=== PATIENT | male | born 1955 | race Caucasian/White ===

== ENCOUNTER 2018-05-19 20:23 | Inpatient (IN) | payer MEDICAID ==
[~2018-05-19] VITALS: Ht 172.7 cm; Wt 81.6 kg
--- NOTE | 2018-05-19 20:23 | NUR ---
PT BIBA FOUND ALOC AT BUS STATION, PT IS AWAKE , PERRL, PT DOES NOT KNOW YEAR OR WHERE HE IS AT, PT IS FORGETFUL. PT ARRIVES INCONTINENT TO URINE, APPEARS TO HAVE VOMIT ON CLOTHING WELL, PT DENIES ALCOHOL AND DRUG ABUSE. PT PLACED MONITOR, WILL CONTINUE TO MONITOR.
--- NOTE | 2018-05-19 20:23 | NUR ---
Patient BIBA ACLS, transferred to bed 3. RN evaluating patient at bedside.
[2018-05-19 20:31] VITALS: BP_SYST 116; BP_SYST 97; BP_DIAS 62; BP_DIAS 76
--- NOTE | 2018-05-19 20:40 | NUR ---
Dr. Noonan evaluating patient at bedside.
[2018-05-19] MEDS ORDERED: ESK300 PO (21:11)
[2018-05-19] MEDS ORDERED: DULO30EC PO (21:11)
[2018-05-19 21:37] LABS: BASOPHILS # (AUTO) 0.1 K/uL (0.00-0.22); BASOPHILS % (AUTO) 0.4 % (0.0-2.0); EOSINOPHILS # (AUTO) 0.2 K/uL (0-0.4); EOSINOPHILS % (AUTO) 1.7 % (0.0-4.0); HEMATOCRIT 47.9 % (36-52); HEMOGLOBIN 15.7 g/dL (12.0-18.0); LYMPHOCYTES # (AUTO) 2.7 K/uL (2.0-11.5); LYMPHOCYTES % (AUTO) 23.2 % (20.5-51.1); MEAN CORPUSCULAR HEMOGLOBIN 30 pg (27-31); MEAN CORPUSCULAR HGB CONC 33 g/dL (33-37); MEAN CORPUSCULAR VOLUME 90.9 fL (80-94); MONOCYTES # (AUTO) 0.7 K/uL (0.8-1.0); MONOCYTES % (AUTO) 6.3 % (1.7-9.3); NEUTROPHILS # (AUTO) 7.8 K/uL (1.8-7.7); NEUTROPHILS % (AUTO) 68.4 % (42.2-75.2); PLATELET COUNT (AUTO) 201 K/uL (140-450); RED BLOOD CELL COUNT(AUTO) 5.27 MIL/uL (4.20-6.10); RED CELL DISTRIBUTION WIDTH 14.3 % (11.6-13.7); WHITE BLOOD COUNT (AUTO) 11.5 K/uL (4.8-10.8)
[2018-05-19 21:51] LABS: ANION GAP 13.5 (8-16); CREATININE 0.9 mg/dL (0.7-1.3); POTASSIUM 3.5 mmol/L (3.5-5.1)
[2018-05-19 22:07] LABS: ALBUMIN 3.9 g/dL (3.4-5.0); THYROID STIMULATING HORMONE 1.22 uIU/mL (0.34-3.74); TOTAL BILIRUBIN 0.8 mg/dL (0.0-1.0)
--- NOTE | 2018-05-19 22:30 | NUR ---
pt returned from ct.
[2018-05-19] MEDS ORDERED: LEVOFLOXACIN 750 MG/D5W PREMIX 150 ML IV ONE (22:40)
[2018-05-19] MEDS ORDERED: NACL 0.9% IV ONE (22:40)
[2018-05-19] MEDS ORDERED: VANCOMYCIN 1,000 MG in DEXTROSE 5% 250 ML IV ONE (22:40)
--- NOTE | 2018-05-19 22:45 | NUR ---
PT ANSWERING QUESTIONS APPROPRIATELY ON FURTHER EXAMINATION, PT DOES NOT KNOW YEAR OR CITY, PT IS VERY FORGETFULL, PT CAN NOT RECALL PMH W/O REMINDER. VSS, WILL CONTINUE TO MONITOR.
--- NOTE | 2018-05-19 22:51 | NUR ---
LEVAQUINN NOT AVAILABLE IN ER GERMAINE SWEET MADE AWARE
[2018-05-19] MEDS ORDERED: VANCOMYCIN 1,000 MG VIAL ONE (22:58)
[2018-05-19] MEDS ORDERED: LEVOFLOXACIN 250 MG/D5 PREMIX 50 ML IV ONE (23:28)
[2018-05-19] MEDS ORDERED: LEVOFLOXACIN 500 MG/D5W PREMIX 100 ML IV ONE (23:29)
[2018-05-19] MEDS ORDERED: ACETAMINOPHEN 325 MG TAB PO PRN (23:30)
[2018-05-19] MEDS ORDERED: DOCUSATE SODIUM 100 MG GELCAP PO PRN (23:30)
[2018-05-19] MEDS ORDERED: ONDANSETRON 4 MG/2 ML VIAL IM/IVP PRN (23:30)
--- NOTE | 2018-05-19 23:45 | NUR ---
Patient will be admitted to care of DR ORTIZ . Admited to TELE. Will go to [id number]. Belongings list completed. Report to MITCHELL LEWIS .
[2018-05-19 23:50] VITALS: BP 131/76
--- NOTE | 2018-05-19 23:50 | NUR ---
RECEIVED BEDSIDE REPORT FROM LEASE BUYER KASIA, PATIENT TRANSFERRED TO BED, PATIENT STATED HE HAS DIFFICULTY AMBULATING DUE TO PARKINSON'S DISEASE, ON 2 O2 VIA NC, V/S TAKEN, PATIENT STATED HE HAS BACK PAIN 11/13. WILL MEDICATE ACCORDING TO MD ORDER. NOTED RIGHT THUMB SKIN TEAR, WILL TAKE PICTURE. MRSA SCREEN COLLECTED AND SENT TO LAB. IV IN LEFT HAND 22 G, INFUSING VANCOMYCIN AT 165 ML/HR, WILL GIVE FLUID FINISH BOLUS ONCE COMPLETED, THAN GIVE LEVAQUIN. BED ALARM ON, CALL LIGHT WITHIN REACH, WILL CONTINUE TO MONITOR.
[2018-05-20] VITALS (7 sets, daily range): BP systolic 128–140; BP diastolic 64–86
[2018-05-20 00:23] LABS: PROTHROMBIN TIME 10.5 secs (10.8-13.4)
[2018-05-20] MEDS: HYDROcodone/APAP 7.5/325 MG 1 TAB PO PRN ×3 (00:30→16:01)
[2018-05-20 00:36] LABS: CHOL/HDL RATIO 2.2 (1-4.5); FREE T4 (FREE THYROXINE) 0.84 ng/dL (0.76-1.46); MAGNESIUM 2.3 mg/dL (1.8-2.4); PHOSPHORUS 3.7 mg/dL (2.5-4.9); THYROID STIMULATING HORMONE 1.26 uIU/mL (0.34-3.74)
--- NOTE | 2018-05-20 02:00 | NUR ---
VANCOMYCIN COMPLETED, WILL CONTINUE FLUID BOLUS, URINE SAMPLE COLLECTED, PATIENT REMINDED OF SPUTUM SAMPLE NEEDED.
[2018-05-20] MEDS ORDERED: MECLIZINE 25 MG TAB PO PRN (02:50)
[2018-05-20 02:51] LABS: APPEARANCE,URINE CLEAR (CLEAR); BILIRUBIN,URINE NEGATIVE (NEGATIVE); BLOOD, URINE NEGATIVE (NEGATIVE); COLOR,URINE YELLOW (YELLOW); LEUKOCYTE ESTERASE ,URINE NEGATIVE (NEGATIVE); NITRITE, URINE NEGATIVE (NEGATIVE); UGLUCOSE NEGATIVE (NEGATIVE)
[2018-05-20 02:57] LABS: BARBITURATE, URINE NEG. ng/ml (NEG <=200); BENZODIAZEPINE, URINE NEG. ng/mL (NEG <=200); CANNABINOID, URINE NEG. ng/mL (NEG <=50); COCAINE, URINE NEG. ng/mL (NEG <=300); OPIATE, URINE NEG. ng/mL (NEG <=2000); PHENCYCLIDINE SCREEN,URINE NEG. ng/mL (NEG <=25)
[2018-05-20] MEDS ORDERED: ALBUTEROL SULFATE/IPRATROPIU 3 ML SOL IH PRN (03:00)
--- NOTE | 2018-05-20 03:00 | NUR ---
HIGH PRESSURE ALARM, FLUSHED IV WITH 10 ML, PATIENT DENIES PAIN AT SITE. FLUID BOLUS CONTINUING TO INFUSE. WILL GIVE LEVAQUIN ONCE DONE INFUSING.
[2018-05-20 03:01] LABS: RBC,URINE 0-5 (RARE) /HPF (0-5); WBC,URINE 0-5 (RARE) /HPF (0-5)
--- NOTE | 2018-05-20 03:24 | NUR ---
PICTURE OF RIGHT THUMB TAKEN AND PLACED IN CHART.
--- NOTE | 2018-05-20 04:52 | NUR ---
IV FLUID BOLUS COMPLETED, STARTED LEVAQUIN.
[2018-05-20] MEDS ORDERED: PIPERACILLIN/TAZOBACTAM 3.375 GM VIAL IV ONE (05:03)
--- NOTE | 2018-05-20 05:30 | NUR ---
ZOSYN INFUSING, WILL CONTINUE TO MONITOR.
[2018-05-20] MEDS: PIPER/TAZO 3.375GM/D5W PREMIX 50 ML IV SCH ×3 (05:49→18:12)
--- NOTE | 2018-05-20 06:00 | NUR ---
EXPLAINED TO PATIENT THAT DR ORDERED ORTHOSTATIC TEST, PATIENT STATED "AFTER BREAKFAST". WILL ENDORSE TO DAY SHIFT.
--- NOTE | 2018-05-20 07:30 | NUR ---
RECEIVED PT AAOX2-3. NO SOB NOTED. NO C/O PAIN AT THIS TIME. IV TO LT HAND PATENT AND INTACT. CHEST, DIMINISHED AIR ENTRY TO THE BASES, WITH O2 AT 2LPM VIA NASAL CANNULA. ABDOMEN SOFT, BOWEL SOUNDS PRESENT. NO EDEMA NOTED. INSTRUCTED PT TO CALL FOR ASSISTANCE, CALL LIGHT WITHIN REACH, BED ON LOWEST POSITION WITH 3 SIDE RAILS RAISED UP. PT VERBALIZED UNDERSTANDING.
--- NOTE | 2018-05-20 07:31 | NUR ---
ENDORSED PATIENT TO DAY SHIFT NURSE, PATIENT STABLE.
[2018-05-20 07:52] LABS: BASOPHILS # (AUTO) 0.1 K/uL (0.00-0.22); BASOPHILS % (AUTO) 0.5 % (0.0-2.0); EOSINOPHILS # (AUTO) 0.2 K/uL (0-0.4); EOSINOPHILS % (AUTO) 1.9 % (0.0-4.0); HEMATOCRIT 44.3 % (36-52); HEMOGLOBIN 14.4 g/dL (12.0-18.0); LYMPHOCYTES # (AUTO) 1.7 K/uL (2.0-11.5); LYMPHOCYTES % (AUTO) 15.9 % (20.5-51.1); MEAN CORPUSCULAR HEMOGLOBIN 30 pg (27-31); MEAN CORPUSCULAR HGB CONC 33 g/dL (33-37); MEAN CORPUSCULAR VOLUME 91.3 fL (80-94); MONOCYTES # (AUTO) 0.8 K/uL (0.8-1.0); MONOCYTES % (AUTO) 7.2 % (1.7-9.3); NEUTROPHILS # (AUTO) 8.1 K/uL (1.8-7.7); NEUTROPHILS % (AUTO) 74.5 % (42.2-75.2); PLATELET COUNT (AUTO) 162 K/uL (140-450); RED BLOOD CELL COUNT(AUTO) 4.85 MIL/uL (4.20-6.10); RED CELL DISTRIBUTION WIDTH 14.1 % (11.6-13.7); WHITE BLOOD COUNT (AUTO) 10.9 K/uL (4.8-10.8)
--- NOTE | 2018-05-20 07:58 | NUR ---
AWAKE AND ALERT RESPONSIVE TO SERVICE DESK ANALYST VERBAL COMMANDS NO SOB NOTED AT THIS TIME PATIENT WITH BREAKFAST TRAY AT THIS TIME SERVICE DESK ANALYST TO ATTEMPT HHN THERAPY AT A LATER TIME
[2018-05-20 08:27] LABS: ANION GAP 10.5 (8-16); CARBON DIOXIDE 26.3 mmol/L (21-32); CREATININE 0.8 mg/dL (0.7-1.3); POTASSIUM 3.8 mmol/L (3.5-5.1)
[2018-05-20] MEDS: DULoxetine 30 MG CAPDR PO SCH ×2 (09:37→20:24)
[2018-05-20] MEDS: ALBUTEROL SULFATE/IPRATROPIU 3 ML SOL IH SCH ×3 (09:59→19:54)
--- NOTE | 2018-05-20 10:30 | NUR ---
PHYSICAL THERAPY ON GOING AT THE BEDSIDE.
[2018-05-20] MEDS ORDERED: LITHIUM CARBONATE 300 MG TAB PO SCH (11:00)
--- NOTE | 2018-05-20 12:45 | NUR ---
PT CONSUMED 100% OF MEALS SERVED FOR BREAKFAST AND LUNCH, FOOD TOLERATED WELL.
--- NOTE | 2018-05-20 14:22 | NUR ---
(LATE ENTRY) NON PRODUCTIVE COUGH PATIENT UNABLE TO PRODUCE SAMPLE FOR SPUTUM CULTURE
--- NOTE | 2018-05-20 15:15 | NUR ---
PT RESTING. NO SOB NOTED. NO SIGNS OF PAIN.
[2018-05-20] MEDS: NACL 0.9% 1,000 ML IV SCH ×3 (16:02→20:36)
--- NOTE | 2018-05-20 18:51 | NUR ---
PT AWAKE, WATCHING TV, NO SOB NOTED. NO COMPLAINTS MADE. WILL ENDORSE TO NEXT SHIFT NURSE FOR CONTINUITY OF CARE.
--- NOTE | 2018-05-20 19:10 | NUR ---
RECD. RESTING IN BED, AWAKE, A/OX3. RESPIRATION EVEN AND UNLABORED. 02 SAT - 96% ON 2 LITERS 02 BY N/C. IV OF NS AT 100 ML/HR INFUSING, LEFT HAND G22. NOTED DRY WOUND LIKE SCAB AT THE RIGHT THUMB. SAFETY MEASURES ENFORCED. PLAN OF CARE DISCUSSED. VERBALIZED UNDERSTANDING. DENIES PAIN 0/10.
--- NOTE | 2018-05-20 19:30 | NUR ---
Patient's Plan of Care was discussed and reviewed with SHINGLER: BHARGAVI
[2018-05-20] MEDS: LITHIUM CARBONATE 300 MG TAB PO SCH (20:24)
--- NOTE | 2018-05-21 | NUR ---
SLEEPING COMFORTABLY IN BED.
[2018-05-21] MEDS: PIPER/TAZO 3.375GM/D5W PREMIX 50 ML IV SCH ×5 (00:41→23:18)
[2018-05-21] MEDS: HYDROcodone/APAP 7.5/325 MG 1 TAB PO PRN ×4 (06:00→20:40)
--- NOTE | 2018-05-21 06:00 | NUR ---
TAKEN TO RADIOLOGY FOR X-RAY ACCOMPANIED BY TECH.
--- NOTE | 2018-05-21 06:25 | NUR ---
BACK TO ROOM FROM X-RAY. SAFETY MAINTAINED.
[2018-05-21] MEDS: NACL 0.9% 1,000 ML IV SCH (06:36)
--- NOTE | 2018-05-21 07:20 | NUR ---
CONDITION REMAIN STABLE. ENDORSED TO AM NURSE FOR CONTINUITY OF CARE.
--- NOTE | 2018-05-21 07:30 | NUR ---
RECEIVED PT AAOX3, PT IS MORE ALERT TODAY. NO SOB NOTED. NO C/O PAIN AT THIS TIME. IV TO LT HAND PATENT AND INTACT. CHEST, DIMINISHED AIR ENTRY TO THE BASES, ON ROOM AIR WITH SATS AT 95%. ABDOMEN SOFT, BOWEL SOUNDS PRESENT. NO EDEMA NOTED. INSTRUCTED PT TO CALL FOR ASSISTANCE, CALL LIGHT WITHIN REACH, BED ON LOWEST POSITION WITH 3 SIDE RAILS RAISED UP. PT VERBALIZED UNDERSTANDING.
[2018-05-21] MEDS: ALBUTEROL SULFATE/IPRATROPIU 3 ML SOL IH SCH ×3 (07:47→20:01)
--- NOTE | 2018-05-21 07:57 | NUR ---
NON PRODUCTIVE COUGH PATIENT UNABLE TO PRODUCE SAMPLE FOR SPUTUM CULTURE
[2018-05-21 08:00] VITALS: BP 134/89
[2018-05-21 08:02] LABS: BASOPHILS # (AUTO) 0.1 K/uL (0.00-0.22); BASOPHILS % (AUTO) 0.5 % (0.0-2.0); EOSINOPHILS # (AUTO) 0.3 K/uL (0-0.4); EOSINOPHILS % (AUTO) 2.3 % (0.0-4.0); HEMATOCRIT 42.2 % (36-52); HEMOGLOBIN 13.8 g/dL (12.0-18.0); LYMPHOCYTES # (AUTO) 2.2 K/uL (2.0-11.5); MEAN CORPUSCULAR HEMOGLOBIN 30 pg (27-31); MEAN CORPUSCULAR HGB CONC 33 g/dL (33-37); MONOCYTES # (AUTO) 0.7 K/uL (0.8-1.0); MONOCYTES % (AUTO) 6.7 % (1.7-9.3); NEUTROPHILS # (AUTO) 7.7 K/uL (1.8-7.7); NEUTROPHILS % (AUTO) 70.5 % (42.2-75.2); PLATELET COUNT (AUTO) 154 K/uL (140-450); RED BLOOD CELL COUNT(AUTO) 4.59 MIL/uL (4.20-6.10); RED CELL DISTRIBUTION WIDTH 14.4 % (11.6-13.7)
[2018-05-21 08:25] LABS: ANION GAP 11.2 (8-16); CARBON DIOXIDE 26.7 mmol/L (21-32); CREATININE 0.8 mg/dL (0.7-1.3); POTASSIUM 3.9 mmol/L (3.5-5.1)
[2018-05-21 08:30] LABS: PHOSPHORUS 2.9 mg/dL (2.5-4.9)
--- NOTE | 2018-05-21 09:00 | NUR ---
HOMELESS RESOURCES GIVEN TO PT, VERBALIZED UNDERSTANDING. PT SIGNED THE HOMELESS WAIVER FORM.
[2018-05-21] MEDS: DULoxetine 30 MG CAPDR PO SCH ×2 (09:49→20:40)
[2018-05-21] MEDS: LITHIUM CARBONATE 300 MG TAB PO SCH ×2 (09:49→20:41)
--- NOTE | 2018-05-21 10:00 | NUR ---
FOUND PT'S HOME MEDS INSIDE PT'S BUNCH OF BELONGINGS ON TOP OF PT'S WHEELCHAIR AT THE BEDSIDE. MEDS SENT TO PHARMACY FOR SAFE KEEPING.
[2018-05-21] MEDS ORDERED: LEVO750T51 PO (10:07)
[2018-05-21] MEDS ORDERED: LACT10CA1 PO (10:09)
--- NOTE | 2018-05-21 12:33 | NUR ---
PATIENT HAS BEEN SCREENED AND CATEGORIZED HIGH NUTRITION RISK. PATIENT WILL BE SEEN WITHIN 1-2 DAYS OF ADMISSION. 05/20/18 05/21/18 YASIR THOMAS MBA, RD
--- NOTE | 2018-05-21 14:05 | NUR ---
TOLERATED INCENTIVE SPIROMETRY THERAPY WELL WITHOUT INCIDENT ENCOURAGED PATIENT WITH ACKNOWLEDGEMENT TO USE INCENTIVE SPIROMETRY EVERY 1-2 HOURS WHILE AWAKE
[2018-05-21 16:00] VITALS: BP 137/74
--- NOTE | 2018-05-21 16:03 | NUR ---
05/21/18 RD INITIAL ASSESSMENT COMPLETED PLEASE REFER TO NUTRITION ASSESSMENT UNDER CARE ACTIVITY FOR ESTIMATED NUTRITIONAL NEEDS. RD RECOMMENDATIONS: 1. RECOMMEND CONTINUE REGULAR DIET 2. F/U IN 5-7 DAYS; LOW RISK YASIR THOMAS MBA, RD
--- NOTE | 2018-05-21 19:00 | NUR ---
PT AWAKE, WATCHING TV. NO SOB NOTED. NO COMPLAINTS MADE. WILL ENDORSE TO NEXT SHIFT NURSE FOR CONTINUITY OF CARE.
--- NOTE | 2018-05-21 20:45 | NUR ---
WATCHING TV. DUE PO MEDICATIONS GIVEN.
--- NOTE | 2018-05-21 22:20 | NUR ---
Patient's Plan of Care was discussed and reviewed with EVENT MARKETING REPRESENTATIVE: UYEN BRASWELL
[2018-05-22] VITALS: BP 128/82
--- NOTE | 2018-05-22 | NUR ---
SLEEPING COMFORTABLY IN BED.
--- NOTE | 2018-05-22 04:00 | NUR ---
STILL SLEEPING COMFORTABLY IN BED.
[2018-05-22] MEDS: PIPER/TAZO 3.375GM/D5W PREMIX 50 ML IV SCH ×2 (05:29→12:17)
--- NOTE | 2018-05-22 07:35 | NUR ---
REPORT RECEIVED FROM NIGHT NURSE. PT A/O ABLE TO COMMUNICATE NEEDS. DENIES PAIN, SOB, DIFFICULTY BREATHING OR DISCOMFORT. NO S/S OF ACUTE DISTRESS NOTED AT THIS TIME. CALL LIGHT, PERSONAL ITEMS WITHIN REACH, SAFETY MEASURES IN PLACE, WILL CONTINUE TO MONITOR.
--- NOTE | 2018-05-22 07:35 | NUR ---
CONDITION REMAIN STABLE. ENDORSED TO AM NURSE FOR CONTINUITY OF CARE.
[2018-05-22] MEDS: ALBUTEROL SULFATE/IPRATROPIU 3 ML SOL IH SCH ×2 (07:51→14:09)
[2018-05-22 08:00] VITALS: BP 114/75
[2018-05-22 08:17] LABS: BASOPHILS % (AUTO) 0.4 % (0.0-2.0); EOSINOPHILS # (AUTO) 0.3 K/uL (0-0.4); EOSINOPHILS % (AUTO) 3.3 % (0.0-4.0); HEMATOCRIT 41.8 % (36-52); HEMOGLOBIN 13.7 g/dL (12.0-18.0); LYMPHOCYTES # (AUTO) 2.2 K/uL (2.0-11.5); LYMPHOCYTES % (AUTO) 24.1 % (20.5-51.1); MEAN CORPUSCULAR HEMOGLOBIN 30 pg (27-31); MEAN CORPUSCULAR HGB CONC 33 g/dL (33-37); MEAN CORPUSCULAR VOLUME 91.5 fL (80-94); MONOCYTES # (AUTO) 0.6 K/uL (0.8-1.0); MONOCYTES % (AUTO) 7.2 % (1.7-9.3); NEUTROPHILS # (AUTO) 5.8 K/uL (1.8-7.7); PLATELET COUNT (AUTO) 163 K/uL (140-450); RED BLOOD CELL COUNT(AUTO) 4.57 MIL/uL (4.20-6.10); RED CELL DISTRIBUTION WIDTH 14.3 % (11.6-13.7)
[2018-05-22] MEDS: DULoxetine 30 MG CAPDR PO SCH (09:03)
[2018-05-22] MEDS: LITHIUM CARBONATE 300 MG TAB PO SCH (09:03)
--- NOTE | 2018-05-22 10:00 | NUR ---
WOUND CARE NOTE: REASON FOR EVALUATION: RIGHT THUMB SCAB PT. RIGHT THUMB OLD LACERATION WITH BROWN SCAB AREA 2X0.1CM, NO DRAINAGE, NO ODOR, SELAM-WOUND SKIN INTACT AND PINK, DENIES OF PAIN. NO OTHER SKIN OPEN OR REDNESS AREAS. INSTRUCT PT. TO TURN AND REPOSITION AND WEIGHT SHIFTING Q 2 HOURS WHEN UP IN WC. PT. VERBALIZING UNDERSTANDING. RECOMMENDATIONS: -CLEANSE RIGHT THUMB WITH NS, PAINT WITH BETADINE BIDWC AND LEAVE IT OPEN TO AIR. -KEEP RIGHT THUMB DRY AND CLEAN AT ALL TIMES.
--- NOTE | 2018-05-22 10:30 | NUR ---
PT AWAKE A/O DENIES PAIN, SOB OR DISCOMFORT. NO S/S OF ACUTE DISTRESS NOTED AT THIS TIME. CALL LIGHT, PERSONAL ITEMS WITHIN REACH, SAFETY MEASURES IN PLACE, WILL CONTINUE TO MONITOR.
[2018-05-22] MEDS: HYDROcodone/APAP 7.5/325 MG 1 TAB PO PRN (12:20)
--- NOTE | 2018-05-22 13:30 | NUR ---
PT AWAKE A/O ABLE TO COMMUNICATE NEEDS, DENIES SOB. NO S/S OF ACUTE DISTRESS NOTED AT THIS TIME. CALL LIGHT, PERSONAL ITEMS WITHIN REACH, SAFETY MEASURES IN PLACE, WILL CONTINUE TO MONITOR.
[2018-05-22 16:00] VITALS: BP 128/76
[2018-05-22 16:32] VITALS: BP 128/76
--- NOTE | 2018-05-22 17:30 | NUR ---
PT A/O ABLE TO COMMUNICATE NEEDS, DENIES PAIN OR SOB, NO S/S OF ACUTE DISTRESS NOTED. PT STABLE AT TIME OF DISCHARGE. PT PROVIDED W DISCHARGE INSTRUCTION, PRESCRIPTIONS, LEVAQUIN AND HOME MEDS FROM PHARMACY, VERBALIZED UNDERSTANDING OF INSTRUCTION. [employer] PROVIDED FOR REFERENCE. PT PROVIDED WITH TRANSPORTATION VOUCHER FOR PUBLIC TRANSPORTATION AND LOCAL OF NEAREST EMERGENCY INTERMEDIATE, PT AGREEABLE TO USE. IV ACCESS REMOVED, CATH INTACT,BANDAGE APPLIED, NO S/S OF INFILTRATION OR BLEEDING NOTED. PT DISCHARGED W ALL BELONGINGS.
[2018-05-23] MEDS ORDERED: NACL 0.9% IRR 250 ML BOTTLE IR SCH (01:00)
--- NOTE | 2018-05-23 08:13 | NUR ---
Smoke Chaser Note: Late entry 05/22/18: I provided patient with community resources, including a list of room and boards, homeless shelters, and food dean.
== END 2018-05-22 17:30 | disposition home health service (06) | DRG 137 ==
LOC: MED 20:23 → MTU 23:30
PROVIDERS: ADMIT General Practice; ATTEND General Practice
DX: J69.0 Pneumonitis due to inhalation of food and vomit (principal); J96.00 Acute respiratory failure, unspecified whether with hypoxia or hypercapnia; G93.41 Metabolic encephalopathy; F31.9 Bipolar disorder, unspecified; G20 Parkinson's disease; J98.11 Atelectasis; M47.814 Spondylosis without myelopathy or radiculopathy, thoracic region; E86.0 Dehydration; B19.20 Unspecified viral hepatitis C without hepatic coma; Z79.899 Other long term (current) drug therapy; Z87.820 Personal history of traumatic brain injury; Z59.0 Homelessness
CPT/HCPCS: 36415; 36600; 70450; 71045; 80048; 80053; 80178; 80305; 81001; 82140; 82150; 82803; 83036; 83605; 83690; 83735; 83880; 84100; 84436; 84439; 84443; 84479; 84484; 85025; 85610; 85730; 87040; 87081; 93880; 94640; 97110; 99285; J1956; J2543; J3370; J7030; J7620; Q0092